=== PATIENT | female | born 1995 | race Caucasian/White ===

== ENCOUNTER 2018-02-13 22:56 | Outpatient (CLI) | payer OTHER ==
[2018-02-13 23:18] VITALS: BP 113/64
--- NOTE | 2018-02-14 03:04 | Progress Note ---
Assessment and Plan A: Term . False labor. BPP 8/8. P: Discharge pt. to home. Daily movement counting, signs of labor, and warning signs of late discussed with pt. Advised pt. to keep scheduled follow up appt. this week at the office. Subjective - Subjective Date of service: 02/14/18 Principal diagnosis: False labor Patient reports: contractions (22 year old presents at 37 weeks gestation complaining of contractions for several hours. Pt. denies VB or LOF. Pt. reports active movement. Pt. denies falls or abdominal trauma. ), no loss of fluid, no vaginal bleeding Objective - Vital Signs Vital Signs: Vital Signs - 12hr 02/13/18 02/13/18 23:22 23:27 Temperature 98.7 F Pulse Rate 72 72 Respiratory 18 Rate Blood Pressure 113/64 Blood Pressure 113/64 [Left] - Exam Breasts: deferred Abdomen: Present: normal appearance, soft. Absent: distention, tenderness, guarding Vulva: both: normal Uterus: Present: other (enlarged, nontender, S=D) FHR: other (FHR with normal baseline rate, moderate variability, and accelerations. BPP 8/8.) Uterine Contraction Monitor Mode: External Cervical Dilatation: 1 Cervical Effacement Percentage: 60 station: -1 Uterine Contraction Pattern: Irregular Uterine Contraction Intensity: Mild Extremities: normal
--- NOTE | 2018-02-14 03:14 | Ultrasound Report ---
FINAL REPORT EXAM: US OB LIMITED HISTORY: Check Fluid/ non reasurring NST TECHNIQUE: A limited OB sonogram was obtained for evaluation of the amniotic fluid volume index and biophysical profile. FINDINGS: The ERICK is 13.5 cm which is normal. The heart rate is 130 BPM. A total biophysical profile score obtain was 8 out of 8. IMPRESSION: Normal biophysical profile score of 8 out of 8. Normal ERICK of 13.5 cm. heart rate is 130 BPM.
--- NOTE | 2018-02-14 03:14 | Ultrasound Report ---
FINAL REPORT EXAM: US OB BPP WO NON-STRESS HISTORY: Non Reassuring Tracing TECHNIQUE: A limited transabdominal OB sonogram was obtained for evaluation of amniotic fluid index. FINDINGS: The amniotic fluid index is 13.5 cm which is normal. The heart rate is 130 BPM. IMPRESSION: Amniotic fluid index is 13.5 cm which is normal. The heart rate is 130 BPM.
== END 2018-02-14 02:34 | disposition home or self-care (01) ==
LOC: EDBD 22:56 → TRG 22:56
PROVIDERS: ATTEND Obstetrics & Gynecology
DX: O62.9 Abnormality of forces of labor, unspecified (principal); Z3A.38 38 weeks gestation of pregnancy
CPT/HCPCS: 59025; 76815; 76819

== ENCOUNTER 2020-03-04 16:32 | Inpatient (IN) | payer SELFPAY ==
[2020-03-04] MEDS ORDERED: TERBUTALINE 1 MG/1 ML INJ SUB-Q PRN (22:19)
[2020-03-04] MEDS ORDERED: LIDOCAINE (2%) 20 MG/1 ML VIAL 20 ML MDV INFILTRATI ONE (22:19)
--- NOTE | 2020-03-04 22:41 | Ultrasound Report ---
ULTRASOUND BIOPHYSICAL PROFILE INDICATION: wellbeing. COMPARISON: None available. FINDINGS: breathing movement = 0 Gross body movement = 2 tone = 2 Qualitative amniotic fluid volume = 2 Total biophysical score = 8/8 Amniotic fluid index is 14 cm. Presentation is Cephalic. heart rate is 129 beats per minute. IMPRESSION: 1. biophysical profile = 02/13 2. Amniotic fluid index is within normal limits. 3. lie is cephalic. Signer Name: Eldon Ryan MD Signed: 03/04/2020 10:37 PM Workstation Name: [id number]
[2020-03-04] MEDS ORDERED: OXYTOCIN 20 UNIT/1000ML DRIP 20 UNITS/1,000 ML BAG IV SCH (23:00)
[2020-03-04] MEDS ORDERED: OXYTOCIN DRIP 30 UNITS/500 ML BAG IV SCH (23:00)
[2020-03-04 23:03] LABS: Hematocrit 37.6 % (30.3-42.9); Hemoglobin 12.8 gm/dl (10.1-14.3); Mean Corpuscular HGB Conc 34 % (30-34); Mean Corpuscular Volume 90 fl (79-97); Platelet Count 202 K/mm3 (140-440); Red Cell Distribution Width 15.7 % (13.2-15.2)
--- NOTE | 2020-03-04 23:05 | History and Physical Report ---
History of Present Illness Date of examination: 03/04/20 Date of admission: 03/04/20 22:19 Chief complaint: Contractions History of present illness: 24 year old presents with complaint of contractions. Patient states contractions started at 13:30 today. Patient denies leaking of fluid or vaginal bleeding. Patient reports active movement. Patient received care at [facility] and she brings records with her. LMP 06/07/2019. EDC 03/13/2020. without complications. labs are as follows: O+, antibody screen negative, rubella immune, hepatitis B surface antigen negative, HIV negative, RPR nonreactive, gonorrhea negative, chlamydia negative, GBS negative, 1 hour sugar test normal. 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 denies: smoking, alcohol abuse, prescription drug abuse, IV drug use - Obstetrical History Expected Date of Delivery: 03/13/20 Actual Gestation: 38 Week(s) 5 Day(s) : 3 Para: 2 Hx # Term Pregnancies: 2 Number of Pregnancies: 0 Spontaneous Abortions: 0 Induced : 0 Number of Living Children: 2 Medications and Allergies Allergies Allergy/AdvReac Type Severity Reaction Status Date / Time No Known Allergies Allergy Verified 02/26/18 11:32 Home Medications Medication Instructions Recorded Confirmed Last Taken Type No Known Home Medications [No 02/26/18 02/26/18 Unknown History Reported Home Medications] Active Meds: Active Medications Ephedrine Sulfate (Ephedrine Sulfate) 10 mg IV Q2M PRN PRN Reason: Hypotension Fentanyl (Sublimaze) 100 mcg IV Q2H PRN PRN Reason: Pain,Severe (7-10) LABOR PAIN Oxytocin/Sodium Chloride (Pitocin/Ns 20 Unit/1000ml Drip) 20 units in 1,000 mls @ 125 mls/hr IV DIRECT JENNYFER Oxytocin/Sodium Chloride (Pitocin/Ns 30 Unit/500ml) 30 units in 500 mls @ 0 mls/hr IV TITR JENNYFER; Protocol Lactated Ringer's (Lactated Ringers) 1,000 mls @ 125 mls/hr IV DIRECT JENNYFER Terbutaline Sulfate (Brethine) 0.25 mg SUB-Q ONCE PRN PRN Reason: Hyperstimulation/Hypertonicity Review of Systems All systems: negative (contractions) - Vital Signs Vital signs: Vital Signs Pulse BP 73 111/65 03/04/20 16:58 03/04/20 16:58 Temp Pulse Resp BP Pulse Ox 98.3 F 73 20 111/65 03/04/20 16:59 03/04/20 16:59 03/04/20 16:59 03/04/20 16:59 - Physical Exam Abdomen: Positive: normal appearance, soft. Negative: distention, tenderness, guarding, rigidity Genitourinary (Female): Positive: normal external genitalia, normal perenium. Negative: perineal/vulvar lesions (no lesions seen on careful exam with bright light upon admission) Vagina: Positive: normal moisture Uterus: Positive: enlarged. Negative: tender Anus/Rectum: Positive: normal perianal skin Extremities: Positive: normal. Negative: tenderness, edema - Obstetrical FHR: category 2 FHR comments: A few brief variable FHR decelerations with rapid return to baseline. BPP 6/8. Uterine Contraction Monitor Mode: External Cervical Dilatation: 2.5 Cervical Effacement Percentage: 80 station: -2 Uterine Contraction Pattern: Irregular Uterine Contraction Intensity: Mild Results Result Diagrams: 03/04/20 22:15 All other labs normal. Assessment and Plan A: at 38 weeks, 5 days gestation. Early labor. BPP 6/8; variable FHR decelerations. GBS negative. P: Admit. Continuous EFM. GBS prophylaxis. Pitocin augmentation of labor if needed. Discussed with patient risks and benefits of Pitocin augmentation of labor. Patient consented to Pitocin augmentation of labor. Anticipate vaginal .
[2020-03-05] MEDS: fentaNYL 100 MCG/2 ML INJ IV PRN ×2 (00:56→07:00)
[2020-03-05] MEDS: LACTATED RINGERS 1,000 ML IV SCH ×2 (00:59→07:10)
--- NOTE | 2020-03-05 07:08 | Event Note ---
Date: 03/05/20 SVE /-2.
[2020-03-05] MEDS ORDERED: DEXMEDETOMIDINE 200 MCG/2 ML VIAL IV ONE (07:26)
[2020-03-05] MEDS ORDERED: diphenhydrAMINE 50 MG/ML VIAL IV PRN (10:04)
[2020-03-05] MEDS ORDERED: NALOXONE 2 MG/2 ML INJ IV PRN (10:04)
[2020-03-05] MEDS ORDERED: NalbUPHINE 10 MG/1 ML INJ IV PRN (10:04)
[2020-03-05] MEDS ORDERED: ONDANSETRON 4 MG/2 ML INJ IV PRN (10:04)
--- NOTE | 2020-03-05 10:32 | Anesthesia Consultation ---
Anesthesia Consult and Med Hx Date of service: 03/05/20 - Airway Anesthetic Teeth Evaluation: Good ROM Head & Neck: Adequate Mental/Hyoid Distance: Adequate Mallampati Class: Class II Intubation Access Assessment: Good - Pulmonary Exam CTA: Yes - Cardiac Exam Cardiac Exam: RRR - Pre-Operative Health Status ASA Pre-Surgery Classification: ASA2 Proposed Anesthetic Plan: Epidural - Pulmonary Hx Smoking: No Hx Asthma: No COPD: No Hx Pneumonia: No - Cardiovascular System Hx Hypertension: No - Central Nervous System Hx Seizures: No Hx Psychiatric Problems: No - Gastrointestinal Hx Gastroesophageal Reflux Disease: No - Endocrine Hx Renal Disease: No Hx End Stage Renal Disease: No Hx Hypothyroidism: No Hx Hyperthyroidism: No - Hematic Hx Anemia: Yes (no meds) Hx Sickle Cell Disease: No - Other Systems Hx Alcohol Use: No
--- NOTE | 2020-03-05 10:33 | Progress Note ---
Labor Epidural - Labor Epidural Start Time: 10:12 Stop Time: 10:22 Performed by:: STACY BOOTH Procedure: Patient is requesting a laboring epidural for laboring pain. Patient IDed, H&P reviewed, all questions and concerns were answered, and consent was signed. Timeout was performed at bedside. Patient in sitting position. Sterile prep and drape was performed. [3] ml of 1% lidocaine skin wheal at L[3]- L [4]. 18- gauge Touhy epidural needle was advanced to loss of resistance with air technique. Negative CSF negative blood. Epidural catheter advanced to [12] centimeters. [-] Aspiration [-] test dose. Sterile dressing applied. Patient tolerated procedure.
[2020-03-05] MEDS: ePHEDrine SULFATE 50 MG/1 ML INJ IV PRN ×3 (10:59→11:43)
[2020-03-05] MEDS ORDERED: fentaNYL-BUPIV 2 MCG/ML-0.125% 200 MCG/100 ML BAG EPIDURAL SCH (11:00)
--- NOTE | 2020-03-05 11:22 | Event Note ---
Date: 03/05/20 SVE /-/BBOW.
[2020-03-05] MEDS ORDERED: LANOLIN/ZINC/DIMETHICONE (LANSINOH) 7 GM TP PRN (17:31)
[2020-03-05] MEDS ORDERED: ACETAMINOPHEN 325 MG TAB PO PRN (17:31)
[2020-03-05] MEDS ORDERED: MAGNESIUM HYDROXIDE (MOM) ORAL LIQD UDC PO PRN (17:31)
[2020-03-05] MEDS ORDERED: WITCH HAZEL/ GLYCERIN PAD TP PRN (17:31)
--- NOTE | 2020-03-05 17:33 | Procedure Note ---
OB Delivery Note - Delivery Date of Delivery: 03/05/20 Surgeon: ANTELMO SANDERS - Vaginal Delivery presentation: vertex Delivery position: OA Intrapartum events: none Delivery induction: none Delivery augmentation: rupture of membranes, pitocin Delivery monitor: external FHT, external uterine Route of delivery: Delivery placenta: spontaneous Delivery cord: 3 umbilical vessels Episiotomy: none Delivery laceration: none Anesthesia: epidural Delivery comments: Spontaneous vaginal delivery at 16:14 of liveborn male infant weighing 2.613 kg over intact perineum with apgars of 8/9. Baby delivered gently and easily and placed immediately skin to skin with mom after delivery. Short cord noted. Spontaneous cry and respirations. 3 vessel cord double clamped and cut; cord blood obtained. Spontaneous delivery of intact placenta and membranes by kitchen mechanism at 16:17. EBL 300 cc. Pitocin to IV fluids after delivery of placenta. Fundus firm and midline. No lacerations noted. Vaginal sweep negative. Sponge count correct. Mother and baby stable in birthing room.
[2020-03-05] MEDS: IBUPROFEN 600 MG TAB PO SCH (23:18)
[2020-03-06 05:40] LABS: Hemoglobin 10.5 gm/dl (10.1-14.3)
[2020-03-06] MEDS: IBUPROFEN 600 MG TAB PO SCH ×2 (05:49→12:49)
--- NOTE | 2020-03-06 11:24 | Post Anesthesia Evaluation ---
- Post Anesthesia Evaluation Patient Participated: Yes Airway Patent: Yes Stable Respiratory Function: Yes Nausea/Vomiting: No Temp > 96.8F: Yes Pain Manageable: Yes Adequeate Hydration: Yes Anesthesia Complications: No Block Receding Appropriately: Yes Patient on Ventilator: No
--- NOTE | 2020-03-06 11:53 | Progress Note ---
Assessment and Plan A: PP Day #1 Stable P: Follow Routine Orders Depo Provera 150mg IM prior to discharge D/C Home today per patient request RTO in 6 Weeks Subjective - Subjective Date of service: 03/06/20 Patient reports: appetite normal, voiding normally, pain well controlled, flatus, bowel movement, ambulating normally [place]: doing well, bottle feeding (and ) Objective - Vital Signs Latest vital signs: Vital Signs Temp Pulse Resp BP BP Pulse Ox 03/06/20 07:39 98.1 F 63 18 104/71 100 03/06/20 05:54 97.6 F 58 L 18 95/63 100 03/06/20 05:25 97.6 F 58 L 18 95/53 100 03/06/20 03:14 98.2 F 107 H 20 106/52 98 03/06/20 02:59 97.7 F 71 18 99/64 99 03/06/20 02:10 97.7 F 76 18 99/64 98 03/05/20 20:50 98.6 F 84 18 110/64 98 03/05/20 20:22 97 H 107/64 03/05/20 20:10 98.1 F 20 100 03/05/20 19:37 81 92/54 03/05/20 18:37 97 H 99/57 03/05/20 17:37 92 H 95/47 03/05/20 16:43 97.7 F 03/05/20 16:37 110 H 104/51 03/05/20 16:26 104 H 87 03/05/20 16:23 73 95 03/05/20 16:19 117 H 93 03/05/20 16:18 119 H 89 03/05/20 16:13 61 47 L 03/05/20 16:12 141 H 145/63 03/05/20 16:11 139 H 100 03/05/20 16:06 110 H 98 03/05/20 16:01 69 83 L 03/05/20 15:59 98.0 F 03/05/20 15:57 71 96 03/05/20 15:56 65 94/55 03/05/20 15:54 89 03/05/20 15:43 72 99/56 03/05/20 15:41 62 100 03/05/20 15:40 88 77 L 03/05/20 15:36 64 98 03/05/20 15:31 62 99 03/05/20 15:29 79 L 03/05/20 15:27 67 98/54 03/05/20 15:26 71 93 03/05/20 15:23 74 93 03/05/20 15:21 97 03/05/20 15:12 67 103/48 03/05/20 15:10 85 91 03/05/20 15:06 71 97 03/05/20 15:05 81 83 L 03/05/20 15:01 62 99 03/05/20 14:57 73 94/54 84 03/05/20 14:56 58 L 98 03/05/20 14:51 64 96 03/05/20 14:46 68 98 03/05/20 14:43 62 87/48 03/05/20 14:42 66 78 L 03/05/20 14:41 66 99 03/05/20 14:36 64 98 03/05/20 14:33 66 88 03/05/20 14:31 65 100 03/05/20 14:27 68 100/53 03/05/20 14:26 81 100 03/05/20 14:25 71 86 03/05/20 14:21 60 100 03/05/20 14:16 67 99 03/05/20 14:12 59 L 89/49 03/05/20 14:11 62 99 03/05/20 14:06 63 100 03/05/20 14:01 62 100 03/05/20 13:58 62 87/46 03/05/20 13:56 63 100 03/05/20 13:54 78 92 03/05/20 13:51 59 L 100 03/05/20 13:46 59 L 100 03/05/20 13:41 62 91/55 99 03/05/20 13:36 59 L 100 03/05/20 13:31 74 100 03/05/20 13:27 58 L 90/49 03/05/20 13:26 64 100 03/05/20 13:21 57 L 100 03/05/20 13:16 63 100 03/05/20 13:11 65 100 03/05/20 13:06 58 L 100 03/05/20 13:01 60 100 03/05/20 12:57 61 84/41 03/05/20 12:56 71 100 03/05/20 12:51 58 L 100 03/05/20 12:46 60 100 03/05/20 12:43 64 87/42 03/05/20 12:41 59 L 100 03/05/20 12:36 56 L 100 03/05/20 12:31 57 L 100 03/05/20 12:28 60 83/43 03/05/20 12:26 60 100 03/05/20 12:21 58 L 100 03/05/20 12:16 64 100 03/05/20 12:11 58 L 100 03/05/20 12:06 58 L 100 03/05/20 12:01 59 L 100 03/05/20 11:57 57 L 91/47 03/05/20 11:56 62 100 Intake and Output 03/05/20 03/06/20 03/06/20 22:59 06:59 14:59 Intake Total 240 120 Output Total 1400 850 Balance -1160 -730 Intake: Oral 240 120 Output: Urine 1400 850 Void 1400 850 Other: Total, Intake Amount 240 120 Total, Output Amount 400 450 # Voids Void 1 1 Estimated Blood Loss 300 - Exam Breasts: Present: normal Cardiovascular: Present: Regular rate Lungs: Present: Clear to auscultation, Normal air movement Abdomen: Present: normal appearance, soft, normal bowel sounds Uterus: Present: normal, firm, fundal height below umbilicus Extremities: Present: normal
--- NOTE | 2020-03-06 11:54 | Discharge Summary ---
Providers - Providers Date of Admission: 03/04/20 22:19 Date of discharge: 03/06/20 Attending physician: SERGIO PADRON Primary care physician: SERGIO PADRON Hospitalization Reason for admission: rupture of membranes Delivery: Episiotomy: none Laceration: none Other procedures: none complications: none Discharge diagnosis: IUP at term delivered baby: male Condition at discharge: Good Disposition: DC-01 TO HOME OR SELFCARE Plan - Provider Discharge Summary Activity: routine, no sex for 6 weeks, no heavy lifting 4 weeks, no strenuous exercise Diet: routine Instructions: routine Additional instructions: [] Smoking cessation referral if applicable(refer to patient education folder for contact #) [] Refer to [facility]'s [facility] Booklet Call your doctor immediately for: * Fever > 100.5 * Heavy vaginal bleeding ( >1 pad per hour) * Severe persistent headache * Shortness of breath * Reddened, hot, painful area to leg or breast * Drainage or odor from incision. * Keep incision clean and dry at all times and follow doctor's instructions regarding bathing/showering - Follow up plan Follow up: SERGIO PADRON MD [Primary Care Provider] - 6 Weeks
[2020-03-06] MEDS ORDERED: medroxyPROGESTERone ACETATE 150 MG/ML SYRINGE IM ONE (12:00)
[2020-03-06 17:49] VITALS: BP 121/75
== END 2020-03-06 19:45 | disposition home or self-care (01) | DRG 807 ==
LOC: TRG 16:32 → OB 16:36 → APU 16:56 → LD 22:19 → TRG 22:19 → OB 03-05 20:40
PROVIDERS: ADMIT Obstetrics & Gynecology; ATTEND Obstetrics & Gynecology
PROC: 10E0XZZ Delivery of Products of Conception, External Approach (ICD-10-PCS; principal; 2020-03-05)
PROC: 3E0R3BZ Introduction of Anesthetic Agent into Spinal Canal, Percutaneous Approach (ICD-10-PCS; 2020-03-05)
PROC: 00HU33Z Insertion of Infusion Device into Spinal Canal, Percutaneous Approach (ICD-10-PCS; 2020-03-05)
DX: O76 Abnormality in fetal heart rate and rhythm complicating labor and delivery (principal); Z37.0 Single live birth; Z3A.38 38 weeks gestation of pregnancy
CPT/HCPCS: 36415; 76815; 76819; 85014; 85018; 85027; 86592; 86850; 86900; 86901; G0378; J1050; J2590; J3010; J3490; J7120